=== PATIENT | female | born 1960 | race Caucasian/White ===

== ENCOUNTER 2017-01-24 07:36 | Outpatient (CLI) | payer OTHER ==
[2017-01-24 08:33] LABS: eGFR (African) > 60; eGFR (Non-African) > 60
== END 2017-01-24 07:37 ==
LOC: LAB 07:36
PROVIDERS: ATTEND Family Medicine
DX: Z00.00 Encounter for general adult medical examination without abnormal findings (principal); R00.2 Palpitations
CPT/HCPCS: 36415; 80053; 80061; 84443

== ENCOUNTER 2019-03-04 08:57 | Outpatient (CLI) | payer OTHER ==
--- NOTE | 2019-03-04 16:54 | Diagnostic Imaging Report ---
MARCOS GRUBER [facility] [address] [facility].[address] [place] [address]. [id number] Report Submission Date: Mar 04, 2019 9:40:09 AM CDT Patient Study Name: NURA COOK Date: Mar 04, 2019 9:00:02 AM CDT Modality Type: DX Gender: F Description: L SPINE 2 OR 3 VIEWS : 58 Institution: [facility] Physician: MARCOS GRUBER LUMBAR SPINE 3 VIEWS CLINICAL INDICATION: ORDER STATES CHRONIC MIDLINE LOW BACK PAIN W/O SCIATICA (Hx) / Note time : 03/04/2019 9:35:00 AM User : Maurisio Bradley ORDER STATES CHRONIC MIDLINE LOW BACK PAIN W/O SCIATICA (DICOM Hx) (DICOM Hx) FINDINGS: Three views of the lumbar spine were obtained. No acute fracture, subluxation, dislocation, or other acute osseous abnormality is identified. Right convex lumbar scoliosis is present. There are endplate degenerative changes with intervertebral disc space narrowing at L1-2, L2-3 and L3-4. ? If clinical symptoms persist, follow up exam may be warranted to exclude an occult process. ? IMPRESSION: scoliosis and degenerative changes. No fracture Electronically signed on Mar 04, 2019 9:40:09 AM CDT by: Jose M PAZ
--- NOTE | 2019-03-04 16:55 | Diagnostic Imaging Report ---
MARCOS GRUBER [facility] [address] [address] Report Submission Date: Mar 04, 2019 9:38:07 AM CDT Patient Study Name: NURA COOK Date: Mar 04, 2019 9:00:02 AM CDT Modality Type: DX Gender: F Description: SHOULDER 2 VIEWS OR MORE : 58 Institution: [facility] Physician: MARCOS GRUBER Exam: Left shoulder 3 views Indication: ORDER STATES CHRONIC LT SHOULDER PAIN (Hx) / Note time : 03/04/2019 9:33:49 AM User : Maurisio Bradley ORDER STATES CHRONIC LT SHOULDER PAIN (DICOM Hx) (DICOM Hx) Findings: No acute fracture, subluxation, dislocation or other acute osseous abnormality is identified. There are mild degenerative changes of the acromioclavicular joint. If clinical symptoms persist follow up examination may be warranted to exclude an occult process. Impression: No acute osseous abnormality. Degenerative changes Electronically signed on Mar 04, 2019 9:38:07 AM CDT by: Jose M PAZ
== END 2019-03-04 09:00 ==
LOC: RAD 08:57
PROVIDERS: ATTEND Nurse Practitioner Family
DX: M54.5 Low back pain (principal); G89.29 Other chronic pain
CPT/HCPCS: 72100; 73030

== ENCOUNTER 2019-03-17 11:50 | Outpatient (CLI) | payer OTHER ==
--- NOTE | 2019-03-30 15:16 | Diagnostic Imaging Report ---
TREMAYNE ZARATE [facility] [address] [facility].[address] [address] Report Submission Date: Mar 17, 2019 3:03:55 PM CDT Patient Study Name: NURA COOK Date: Mar 17, 2019 2:26:45 PM CDT Modality Type: DX Gender: F Description: PELVIS AP 1 OR 2 VIEWS : 58 Institution: [facility] Physician: TREMAYNE ZARATE Exam: AP pelvis. History: Back pain. No previous studies are available for comparison. No signs of fracture or dislocation is seen. No bony erosions are seen. No soft tissue abnormalities identified. Impression: No bony abnormality. Electronically signed on Mar 17, 2019 3:03:55 PM CDT by: Geremias PAZ
--- NOTE | 2019-03-30 15:18 | Diagnostic Imaging Report ---
TREMAYNE ZARATE [facility] [address] [address] Report Submission Date: Mar 17, 2019 3:08:29 PM CDT Patient Study Name: NURA COOK Date: Mar 17, 2019 2:26:04 PM CDT Modality Type: DX Gender: F Description: SCOLIOSIS SERIES : 58 Institution: [facility] Physician: TREMAYNE ZARATE Exam: AP and lateral views of the spine. History: Low back pain and shoulder pain. AP and lateral views of the cervical, thoracic and the lumbar spine are noted. Twelve rib-bearing thoracic segments are noted. A partially lumbarized 1st sacral segment is noted. No compression deformities are seen. No omar or butterfly vertebrae are identified. A dextroscoliosis is measured between T12 and L5 at 24.7. Impression: Dextroscoliosis measuring 24.7 noted in the lumbar spine. lumbarization of the 1st sacral segment is noted. Electronically signed on Mar 17, 2019 3:08:29 PM CDT by: Geremias PAZ
--- NOTE | 2019-04-03 07:16 | CONSULTATION REPORT ---
DATE OF VISIT: 03/17/2019 CHIEF COMPLAINT: Low back pain. HPI: Ms. Vega presents today for evaluation of her low back pain. She tells me that her low back pain has been worse over the last year and that her back has hurt for as long as she can remember related to her scoliosis. She describes her low back pain as constant, aching, sharp, shooting and throbbing at times. She does have radiation bilateral hips and also posteriorly down to her knees. She denies numbness or tingling in her lower extremities. She does complain of bilateral lower extremity weakness complaining that her legs feel heavy and fatigued. She denies any urinary/bowel incontinence or saddle anesthesia. Her back pain is worse with standing, sitting, driving, lying down, and vacuuming. Her pain is improved with repositioning, warm packs and her back brace. She did have recent steroids and baclofen which also improved her back pain. The patient tells me that she continues a home exercise program for her low back pain on a daily basis. She has participated in formal physical therapy, the last being more than a year ago. She does see a chiropractor approximately two times yearly with some improvement in her low back pain. She has not had injections in her low back. She has previously had bilateral hip injections. When asking the patient to give a percentage of back pain versus leg pain she states that 80% of her pain is localized to her back while 20% is in her lower extremities. PAST MEDICAL HISTORY: Generalized anxiety disorder, irritable colon, arthritis, back pain, depression, fibromyalgia, heartburn/reflux, joint pain, migraine headaches, scoliosis. SURGICAL HISTORY: section, cervical LEEP, total hysterectomy and wisdom teeth extraction. ALLERGIES: No known drug allergies. CURRENT MEDICATIONS: Fluoxetine 20 mg 1 tab p.o. daily and amitriptyline 10 mg q h.s. SOCIAL HISTORY: Tobacco: None. ETOH: Yes daily 4-8 beers per her report. Recreational drug use: None. FAMILY HISTORY: Mother scoliosis, hyperlipidemia. Father heart valve replacement, liver failure. REVIEW OF SYSTEMS: A complete 14 point review of systems was completed and the patient was positive for fatigue, weakness, hearing loss, ringing in ears, constant throat clearing, nasal congestion, double or blurred vision, glasses, diarrhea and constipation, frequent nighttime urination, anxiety/depression, dizziness, leg weakness, sensitivity of hands or feet and low back pain, neck pain and shoulder pain. PHYSICAL EXAMINATION: General: This is a well-developed, well-nourished female patient presenting in no acute distress. Vital Signs: Patient is 53 tall, weighs 135 pounds. Temperature is 98.2, pulse 79. Respiratory rate is 16, blood pressure 139/76 with and SaO2 of 97% on room air. She is rating her pain an 8/10 today. Psych: Alert and oriented x3. She is calm, pleasant and cooperative. HEENT: Normocephalic and atraumatic. Sclerae are clear. Pupils are equal and round without miosis. Trachea is midline. No lymphadenopathy. Cardiovascular: Normal S1, S2. RRR. No gallops rubs or murmurs. Pulmonary: Lungs clear to auscultation throughout. Normal respiratory effort. Abdomen: Bowel sounds in all 4 quadrants. Abdomen is soft, nondistended and nontender. Musculoskeletal: The patient achieves trunk flexion to approximately 12 inches off the floor with low back pain. Extension is full with low back pain. Bilateral Kemps is positive with low back pain only, no radiation. The patient has obvious scoliosis. The patient is tender to palpation at the bilateral L3-4, L4-5 and L5-S1 facet levels and spinous processes as well as the lower lumbar paraspinals. She also has tenderness to palpation over the right SI joint and bilateral greater trochanteric bursas. Bilateral lower extremity strength is equal and strong all areas graded 5/5. Seated straight leg raise is negative. Patellar reflexes are 2+ bilaterally. Sensation to light touch is intact bilateral lower extremities. Neuro: Cranial nerves II-XII are grossly intact. The patient walks with a slow steady gait. IMPRESSION: 1. Chronic lumbago. 2. Lumbar radiculitis versus radiculopathy. 3. Scoliosis. 4. Cervicalgia. 5. Left shoulder pain. PLAN: 1. I did order a scoliosis series of the entire spine. 2. An AP pelvis was also performed. 3. I have ordered an MRI of the lumbar spine without contrast. The patient is aware that she needs to be bring the disk to the clinic for followup. 4. I want the patient to continue with a home exercise program for her low back pain and I have also added a neck regimen. 5. The patient is to follow up after the MRI with me and also consult with Dr. Agee to see if he can improve some of her pain symptoms. 6. I did prescribe the patient baclofen 10 mg 1/2 to 1 tab p.o. t.i.d. p.r.n. dispense #90 with no refills. I did caution the patient that she should not take the muscle relaxer and drink alcohol concurrently as this could cause unintentional overdose. The patient did verbalize understanding of this. No anti-inflammatories were prescribed related to her ETOH use. The patient also does not want any opiate pain medication related to her ETOH use. The patient verbalizes understanding and agrees to the current treatment plan. Merary Stiles NP Nurse Practitioner HOLLY/lewis JOB#: [id number] cc: Tequila Jean MD/Rachel SOLORZANO MTDD
== END 2019-03-17 12:50 ==
LOC: OUT 11:50
PROVIDERS: ATTEND Nurse Practitioner Adult Health
DX: M41.9 Scoliosis, unspecified (principal); M25.512 Pain in left shoulder
CPT/HCPCS: 72084; 72170; 99203

== ENCOUNTER 2019-03-24 14:20 | Outpatient (CLI) | payer OTHER ==
--- NOTE | 2019-04-16 15:57 | OP Clinic Progress Note ---
DATE OF VISIT: 03/24/2019 CHIEF COMPLAINT: Low back pain. HISTORY OF PRESENT ILLNESS: Ms. Vega is a 58-year-old female here for follow up after initial evaluation on 03/17/2019 for low back pain. Her low back pain continues to be constant, aching, sharp, shooting and throbbing at times. She does have radiation into bilateral hips and also posteriorly down to her knees. She denies any numbness or tingling in her lower extremities. She does complain of bilateral lower extremity weakness, complaining that her legs feel heavy and fatigued at times. She denies any urinary/bowel incontinence or saddle anesthesia. Her back pain is worse with standing, sitting, driving, lying down and vacuuming. Her pain is improved with repositioning, warm packs and her back brace. The patient also has some neck pain from time to time that is bothersome. She denies any changes in her neck pain symptoms. The patient has continued a home exercise program for her low back and also has added a neck pain regimen that I gave her at last visit. The patient continues to see a chiropractor approximately two times yearly with some improvement in her low back pain. At last visit I did order a scoliosis series x-ray as well as an AP pelvis x-ray and MRI of the lumbar spine without contrast. The patient did complete these and they were reviewed today. At last visit I had given the patient baclofen to help with her muscle spasms. This does help and she denies any medication side effects or concerns. PMFSH reviewed and without change. REVIEW OF SYSTEMS: A complete 14-point review of systems was completed and positive for fatigue, weakness, hearing loss, ringing in the ears, constant throat clearing, nasal congestion, double or blurred vision, glasses, diarrhea and constipation, frequent nighttime urination, anxiety/depression, dizziness, leg weakness, sensitivity of hands or feet and low back pain, neck pain and shoulder pain. IMAGING: Imaging reviewed on 03/17/[address] [facility]. The patient did complete a scoliosis x-ray series. It revealed dextroscoliosis measuring 24.7 degrees noted in the lumbar spine. Also, lumbarization of the first sacral segment. She also completed an AP pelvis x-ray which revealed a pelvic tilt. MRI of the lumbar spine without contrast was completed on 03/23/2019 at [facility]. At L1-2, trace disc bulge was noted without neural foraminal stenosis or spinal stenosis. At L2-3, again trace bulge without neural foraminal narrowing or spinal stenosis. At L3-4, a small disc bulge without neural foraminal narrowing or spinal stenosis. At L4-5, small disc bulge without spinal stenosis. The disc bulge and facet hypertrophy cause mild right neural foraminal narrowing. At L5-S1, trace disc bulge without spinal stenosis. Mild neural foraminal narrowing secondary to facet hypertrophy is noted at this level. PHYSICAL EXAMINATION: General: This is a well-developed, well-nourished female patient presenting in [facility]. Vital Signs: The patient is 5 feet, 4 inches tall, weighs 134 pounds. Temperature is 98, pulse 80, respiratory rate is 14, blood pressure is 136/70 with an SaO2 of 99% on room air. The patient is rating her pain at 7/10 today. Psych: She is alert and oriented x3. She is calm, pleasant and cooperative. HEENT: She is normocephalic and atraumatic. Pupils are equal and round without miosis. Musculoskeletal: The patient is tender to palpation at the bilateral L3-4, L4-5 and L5-S1 facet levels and over the spinal processes. She also has tenderness to palpation of the lower lumbar paraspinals. She has tenderness to palpation over the right SI joint and bilateral greater trochanteric bursas. Bilateral lower extremity strength remains equal and strong, all areas graded 5/5 in hip flexion, knee extension, knee flexion, dorsiflexion and plantar flexion. Neuro: Cranial nerves II-XII are grossly intact. Sensation to light touch is intact bilateral lower extremities. The patient walks with a slow steady gait. ASSESSMENT: 1. Chronic lumbago. 2. Lumbar radiculitis versus lumbar radiculopathy. 3. Scoliosis. 4. Cervicalgia. 5. Left shoulder pain. 6. Lumbar facet arthrosis. 7. Lumbar DDD. PLAN: 1. The patient is going to consult with Dr. Agee regarding KAMI. 2. If the patient decides to proceed with KAMI, she will need a follow up with me for H&P/med refill. The patient verbalizes understanding and agrees to the current treatment plan. Merary Stiles NPNurse Practitioner /[employer] [id number] Job #[id number] cc: Tequila Jean MD/IRWIN Orellana
== END 2019-03-24 15:20 ==
LOC: OUT 14:20
PROVIDERS: ATTEND Nurse Practitioner Adult Health
DX: M41.86 Other forms of scoliosis, lumbar region (principal); M47.896 Other spondylosis, lumbar region; M51.36 Other intervertebral disc degeneration, lumbar region; M25.512 Pain in left shoulder
CPT/HCPCS: 99213

== ENCOUNTER 2019-03-31 14:29 | Outpatient (CLI) | payer OTHER ==
[2019-03-31 16:29] LABS: BASOPHILS % 0.7 % (0.0-1.5); NEUTROPHILS # 4.1 # k/uL (1.4-7.7)
[2019-03-31 16:51] LABS: eGFR (Non-African) > 60
== END 2019-03-31 15:29 ==
LOC: OUT 14:29
PROVIDERS: ATTEND Nurse Practitioner Adult Health
DX: G89.29 Other chronic pain (principal); M54.5 Low back pain; M41.9 Scoliosis, unspecified; M54.2 Cervicalgia; M54.6 Pain in thoracic spine
CPT/HCPCS: 36415; 80053; 85025; 93005; 99213

== ENCOUNTER 2019-05-06 11:52 | Day surgery (SDC) | payer OTHER ==
[~2019-05-06 11:52] MED LIST: KETOROLAC TROMETHAMINE 30 MG/1ML VIAL ONE; LACTATED RINGERS 1,000 ML IV.SOLN IV ONE; LIDOCAINE HCL 2% PF 100MG/5ML VIAL IJ ONE; MIDAZOLAM HCL 2 MG/2 ML VIAL ONE; ONDANSETRON HCL/PF 4 MG/ 2ML VIAL ONE; PROPOFOL 200 MG/20 ML VIAL IV ONE; SEVOFLURANE 250 ML LIQUID IH ONE; ePHEDrine SULFATE 50 MG/1 ML IVP ONE; fentaNYL CITRATE/PF 100 MCG/2 ML INJ. ONE
== END 2019-05-06 15:00 | disposition home or self-care (01) ==
LOC: OPSURG 11:52
PROVIDERS: ATTEND Specialist
DX: M99.05 Segmental and somatic dysfunction of pelvic region (principal); M70.61 Trochanteric bursitis, right hip; M99.06 Segmental and somatic dysfunction of lower extremity; M47.815 Spondylosis without myelopathy or radiculopathy, thoracolumbar region; M47.812 Spondylosis without myelopathy or radiculopathy, cervical region; M47.817 Spondylosis without myelopathy or radiculopathy, lumbosacral region
CPT/HCPCS: 22505; 27198; 27275; J1885; J2001; J2250; J2405; J2704; J3010; J7120

== ENCOUNTER 2019-05-07 11:52 | Day surgery (SDC) | payer OTHER ==
[~2019-05-07 11:52] MED LIST changes: -ONDANSETRON HCL/PF 4 MG/ 2ML VIAL ONE; +PHENYLEPHRINE HCL 10 MG/1 ML ONE; -ePHEDrine SULFATE 50 MG/1 ML IVP ONE
== END 2019-05-07 15:45 | disposition home or self-care (01) ==
LOC: OPSURG 11:52
PROVIDERS: ATTEND Specialist
DX: M99.05 Segmental and somatic dysfunction of pelvic region (principal); M70.61 Trochanteric bursitis, right hip; M99.06 Segmental and somatic dysfunction of lower extremity; M47.815 Spondylosis without myelopathy or radiculopathy, thoracolumbar region; M47.817 Spondylosis without myelopathy or radiculopathy, lumbosacral region; M47.812 Spondylosis without myelopathy or radiculopathy, cervical region
CPT/HCPCS: 22505; 27198; 27275; J1885; J2001; J2250; J2370; J2704; J3010; J7120

== ENCOUNTER 2019-05-08 11:52 | Day surgery (SDC) | payer OTHER ==
[~2019-05-08 11:52] MED LIST changes: -PHENYLEPHRINE HCL 10 MG/1 ML ONE; -fentaNYL CITRATE/PF 100 MCG/2 ML INJ. ONE
== END 2019-05-08 14:07 | disposition home or self-care (01) ==
LOC: OPSURG 11:52
PROVIDERS: ATTEND Specialist
DX: M99.05 Segmental and somatic dysfunction of pelvic region (principal); M70.61 Trochanteric bursitis, right hip; M99.06 Segmental and somatic dysfunction of lower extremity; M47.815 Spondylosis without myelopathy or radiculopathy, thoracolumbar region; M47.817 Spondylosis without myelopathy or radiculopathy, lumbosacral region; M47.812 Spondylosis without myelopathy or radiculopathy, cervical region
CPT/HCPCS: 22505; 27198; 27275; J1885; J2001; J2250; J2704; J7120